=== PATIENT | male | born 1980 | race Two or more races ===

== ENCOUNTER 2021-08-30 09:33 | Emergency (ER) | payer BC, OTHER ==
[2021-08-30] MEDS ORDERED: Lidocaine 1% 5 ML VIAL INJECT ONE (10:18)
[2021-08-30] MEDS: Lidocaine 1% 5 ML VIAL INJECT ONE ×2 (10:18→14:15)
== END 2021-08-30 10:59 | disposition home or self-care (01) ==
LOC: CC.ED 09:33
DX: S61.210A Laceration without foreign body of right index finger without damage to nail, initial encounter (principal); W26.8XXA Contact with other sharp object(s), not elsewhere classified, initial encounter; Y99.0 Civilian activity done for income or pay
CPT/HCPCS: 12001; 73140-F6; 99283; 99283-25

== ENCOUNTER 2021-10-12 17:51 | Emergency (ER) | payer BC ==
[2021-10-12] MEDS ORDERED: Acetaminophen/HYDROcodone 325-5 MG Tab PO ONE (18:06)
[2021-10-12] MEDS ORDERED: Take Home: Acetaminophen/HYDROcodone 325-5 MG, 2 Tab Pack PO ONE (18:27)
== END 2021-10-12 18:53 | disposition home or self-care (01) ==
LOC: CC.ED 17:51
DX: M25.562 Pain in left knee (principal)
CPT/HCPCS: 73562; 99283; 99284; A9270